=== PATIENT | male | born 1985 | race American Indian/Alaskan Native ===

== ENCOUNTER 2018-11-24 03:45 | Emergency (ER) | payer MEDICAID ==
[2018-11-24 03:57] VITALS: O2SAT 95
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
[2018-11-24] MEDS ORDERED: Bacitracin 500 Units/gm Oint Foilpak UD ONE (04:26)
[2018-11-24 06:23] VITALS: BP 121/75; PULSE 82; RESP 18; TEMP 98
== END 2018-11-24 06:24 | disposition home or self-care (01) ==
LOC: ED 03:45
DX: Z48.89 Encounter for other specified surgical aftercare (principal)